=== PATIENT | female | born 1940 | race Caucasian/White ===

== ENCOUNTER 2018-01-31 13:28 | Observation (INO) | payer OTHER, BC ==
[2018-01-31 14:25] LABS: Absolute Lymphocytes (CBC) 1.6 K/uL (0.7-4.9); Absolute Monocytes 0.6 K/uL (0.1-1.3); Absolute Neutrophil 5.1 K/uL (1.8-8.0); Basophils % 1.2 % (0-1.3); Eosinophils % 3.2 % (0-4.4); Hematocrit 39.7 % (36.0-45.0); Lymphocytes % 20.5 % (15.3-44.8); MCH 28.8 pg (27.0-35.0); MCV 86.7 fL (80-100); MPV 8.5 fL (7.6-11.3); Monocytes % 7.5 % (3.3-12.3); RBC Red Blood Cell Count 4.58 M/uL (3.86-4.86)
--- NOTE | 2018-01-31 14:26 | RAD REPORT ---
EXAM DESCRIPTION: CT - Head Brain Wo Cont - 01/31/2018 2:20 pm CLINICAL HISTORY: Dizziness, hypertension COMPARISON: December 02 TECHNIQUE: Axial 5 mm thick images of the head were obtained without IV contrast. All CT scans are performed using dose optimization technique as appropriate and may include automated exposure control or mA/KV adjustment according to patient size. FINDINGS: No intracranial hemorrhage, mass, edema or shift of mid-line structures. No acute infarcti on changes seen. Patient has underlying atrophy and chronic ischemic pattern is present and not clear ly different from the comparison. Arterial and physiologic calcifications are present. Ventricles are in proportion to any volume loss. Mastoid air cells and visualized portions of the paranasal sinuses are clear. No acute bony findings. IMPRESSION: No hemorrhage, mass or acute intracranial finding. Atrophy and chronic ischemic change stable over the short interval since December 02.
[2018-01-31] MEDS ORDERED: MECLIZINE HCL 12.5 MG TAB ONE (14:29)
[2018-01-31 14:32] LABS: Protime INR 0.99
[2018-01-31 14:49] LABS: Urine Blood NEGATIVE (NEG); Urine Glucose NEGATIVE (NEG); Urine Protein NEGATIVE (NEG)
--- NOTE | 2018-01-31 14:58 | RAD REPORT ---
EXAM DESCRIPTION: RAD - Chest Single View - 01/31/2018 2:29 pm CLINICAL HISTORY: Syncope, weakness, shortness of breath COMPARISON: April 2016 TECHNIQUE: AP portable chest image was obtained 1425 hours . FINDINGS: Lung volumes are low. No peripheral mass, consolidation or failure. Interstitial markings are prominent but not clearly different. Heart and vasculature are normal. No measurable pleural effu marysol and no pneumothorax. No gross bony abnormality seen. No acute aortic findings suspected. IMPRESSION: No acute cardiopulmonary process. Chest findings are similar to comparison.
[2018-01-31 15:01] LABS: Albumin 4.2 g/dL (3.4-5.0); Bilirubin Direct 0.1 mg/dL (0-0.2); Bilirubin Total 0.5 mg/dL (0.2-1.0); CKMB Creatine Kinase MB 1.5 ng/mL (0.3-3.6); Magnesium 2.5 mg/dL (1.8-2.4); Potassium 3.4 mmol/L (3.5-5.1); Protein, Total 8.1 g/dL (6.4-8.2)
--- NOTE | 2018-01-31 17:11 | EKG ---
Test Date: 2018-01-31 Test Time: 14:32:09 [employer] Major: ELTON MEASUREMENT RESULTS: Intervals: Rate: 64 VA: 198 QRSD: 100 QT: 430 QTc: 443 [place]: P: 40 VA: 198 QRS: 23 T: 7 INTERPRETIVE STATEMENTS: Normal sinus rhythm Nonspecific T wave abnormality Abnormal ECG No previous ECG available for comparison Electronically Signed On 01-31-18 17:10:24 CDT by Leeroy Tolentino
--- NOTE | 2018-01-31 18:07 | ER ---
Nurse's Notes [facility] Name: Jaleesa Hernandez Age: 78 yrs Sex: Female : 1940 Arrival Date: 01/31/2018 Time: 13:31 Bed 7 Private MD: Tc Abbott Diagnosis: Near Syncope;Palpitations Presentation: 01/31 13:34 Presenting complaint: Patient states: I have been having dizzy spells at home and today la1 I checked my BP and it was in the 190s/100s. I am feeling dizzy and nauseous. Pt denies Headache. Transition of care: patient was not received from another setting of care. Onset of symptoms was January 31, 2018. Risk Assessment: Do you want to hurt yourself or someone else? Patient reports no desire to harm self or others. Initial Sepsis Screen: Does the patient meet any 2 criteria? No. Patient's initial sepsis screen is negative. Does the patient have a suspected source of infection? No. Patient's initial sepsis screen is negative. Care prior to arrival: None. 13:34 Method Of Arrival: Wheelchair la1 13:34 Acuity: LINUS 3 la1 Historical: - Allergies: 13:36 Sulfa (Sulfonamide Antibiotics); la1 - Home Meds: 13:38 labetalol 200 mg Oral tab 1 tab 2 times per day [Active]; Dexilant 60 mg oral CpDB 1 la1 cap once daily [Active]; hydrochlorothiazide 25 mg Oral tab 1 tab once daily [Active]; lorazepam 0.5 mg Oral tab 1 tab as needed [Active]; - PMHx: 13:36 Hypertension; GERD; bronchiectasis; la1 - Immunization history:: Adult Immunizations up to date. - Social history:: Smoking status: Patient/guardian denies using tobacco. - Ebola Screening: : No symptoms or risks identified at this time. Screenin:01 Abuse screen: Denies threats or abuse. Nutritional screening: No deficits noted. tw2 Tuberculosis screening: No symptoms or risk factors identified. Fall Risk None identified. Assessment: 14:00 General: Appears in no apparent distress. well groomed, Behavior is calm, cooperative, tw2 appropriate for age. Pain: Denies pain. Neuro: Level of Consciousness is awake, alert, obeys commands, Oriented to person, place, time, situation. Neuro: Reports dizziness. Cardiovascular: Denies chest pain, shortness of breath, Heart tones S1 S2 Capillary refill < 3 seconds Patient's skin is warm and dry. Respiratory: Airway is patent Respiratory effort is even, unlabored, Respiratory pattern is regular, symmetrical, Breath sounds are clear bilaterally. GI: No signs and/or symptoms were reported involving the gastrointestinal system. Abdomen is round non-distended, Bowel sounds present X 4 quads. : No signs and/or symptoms were reported regarding the genitourinary system. EENT: No signs and/or symptoms were reported regarding the EENT system. Derm: No signs and/or symptoms reported regarding the dermatologic system. Skin is intact, is healthy with good turgor, Skin temperature is warm. Musculoskeletal: Range of motion: intact in all extremities. 14:01 Reassessment: provider at bedside at this time. tw2 15:10 Reassessment: Patient appears in no apparent distress at this time. No changes from tw2 previously documented assessment. Patient and/or family updated on plan of care and expected duration. Pain level reassessed. Patient is alert, oriented x 3, equal unlabored respirations, skin warm/dry/pink. 16:00 Reassessment: Patient appears in no apparent distress at this time. No changes from tw2 previously documented assessment. Patient and/or family updated on plan of care and expected duration. Pain level reassessed. Patient is alert, oriented x 3, equal unlabored respirations, skin warm/dry/pink. Patient states feeling better. Patient states symptoms have improved. 16:56 Reassessment: Patient appears in no apparent distress at this time. No changes from tw2 previously documented assessment. Patient and/or family updated on plan of care and expected duration. Pain level reassessed. Patient is alert, oriented x 3, equal unlabored respirations, skin warm/dry/pink. Patient states feeling better. Patient states symptoms have improved. 18:01 Reassessment: pt in MRI at this time, unavailable for vs at this time. tw2 18:45 Reassessment: Patient appears in no apparent distress at this time. No changes from tw2 previously documented assessment. Patient and/or family updated on plan of care and expected duration. Pain level reassessed. Patient is alert, oriented x 3, equal unlabored respirations, skin warm/dry/pink. pt back from MRI at this time. 19:00 Reassessment: Patient appears in no apparent distress at this time. Patient and/or aa1 family updated on plan of care and expected duration. Pain level reassessed. Patient is alert, oriented x 3, equal unlabored respirations, skin warm/dry/pink. Awaiting admission to floor after shift change upstairs has been completed. 19:36 Reassessment: Patient appears in no apparent distress at this time. Patient is alert, aa1 oriented x 3, equal unlabored respirations, skin warm/dry/pink. Report given to Elissa on 2nd floor. Vital Signs: 13:36 BP 200 / 76; Pulse 64; Resp 16; Temp 98.2; Pulse Ox 100% on R/A; Weight 72.57 kg; la1 Height 5 ft. 3 in. (160.02 cm); 14:00 BP 177 / 81; Pulse 64; Resp 13; Pulse Ox 100% on R/A; tw2 15:10 BP 161 / 65; Pulse 63; Resp 17; Pulse Ox 98% on R/A; tw2 15:56 BP 151 / 62; Pulse 61; Resp 16; Pulse Ox 97% ; jl7 16:57 BP 125 / 89; Pulse 70; Resp 12; Pulse Ox 98% on R/A; tw2 18:45 BP 152 / 72; Pulse 77; Resp 22; Pulse Ox 96% on R/A; tw2 19:30 BP 157 / 61; Pulse 65; Resp 16; Pulse Ox 98% on R/A; Pain 0/10; aa1 13:36 Body Mass Index 28.34 (72.57 kg, 160.02 cm) la1 ED Course: 13:31 Patient arrived in ED. mr 13:32 Tc Abbott MD is Private Physician. mr 13:35 Triage completed. la1 13:36 Arm band placed on left wrist. la1 13:51 Eloisa Latif, RN is Primary Nurse. tw2 13:51 Placed in gown. Bed in low position. Call light in reach. Adult w/ patient. Cardiac tw2 monitor on. Pulse ox on. NIBP on. 14:00 Bunny Sutton PA is PHCP. [facility] 14:00 Michael Caal MD is Attending Physician. [facility] 14:11 Initial lab(s) drawn, by me, sent to lab. Urine collected: clean catch specimen, clear, jb1 césar colored. Inserted saline lock: 20 gauge in right antecubital area, using aseptic technique. Blood collected. 14:18 CT completed. Patient tolerated procedure well. Patient moved to CT via wheelchair. vr Patient moved back from CT. 14:19 CT Head Brain wo Cont In Process Unspecified. EDMS 14:27 X-ray completed. Portable x-ray completed in exam room. Patient tolerated procedure ml well. 14:29 XRAY Chest (1 view) In Process Unspecified. EDMS 14:38 EKG done, by measurement technician. reviewed by Bunny LAWRENCE. dt2 18:01 Patient moved to MRI via wheelchair. em2 18:05 Tc Abbott MD is Hospitalizing Provider. jmm 18:38 MRI completed. Patient tolerated well. Patient moved back from MRI. ka 19:05 Report given to ANDREI Rodriguez. tw2 19:06 Primary Nurse role handed off by Eloisa Latif, ANDREI tw2 19:30 No provider procedures requiring assistance completed. Patient admitted, IV remains in aa1 place. Administered Medications: 14:28 Drug: Meclizine 25 mg Route: PO; tw2 16:57 Follow up: Response: No adverse reaction; Marked relief of symptoms tw2 Outcome: 18:06 Decision to Hospitalize by Provider. [facility] 20:03 Admitted to Tele accompanied by tech, via wheelchair, room 404, with chart, Report aa1 called to [facility] 20:03 Condition: stable 20:03 Instructed on the need for admit, Demonstrated understanding of instructions. 20:04 Patient left the ED. aa1 Signatures: Dispatcher [employer] EDMS Rashard Enrique jb1 Tori Luo, RN RN aa1 Bunny Sutton PA PA jmm Marleny Sanchez mr Ruben, Lori ronny Ferris, Danica vr Santiago Wilder em2 Tamir Sellers, RN RN laAutumn Lopez Tara, ANDREI RN tw2 Maicol Roque RN RN jl7 Liz Franklin dt2
--- NOTE | 2018-01-31 18:07 | EDPHYS ---
Physician Documentation [facility] Name: Jaleesa Hernandez Age: 78 yrs Sex: Female : 1940 Arrival Date: 01/31/2018 Time: 13:31 Bed 7 Private MD: Tc Abbott ED Physician Michael Caal HPI: 01/31 14:08 This 78 yrs old Female presents to ER via Wheelchair with complaints of m Dizziness, Nausea, High Blood Pressure. 14:08 The patient presents with dizziness. Onset: The symptoms/episode began/occurred jm acutely, at 12:30. Context: occurred while the patient was walking. Modifying factors: The symptoms are alleviated by walking. Associated signs and symptoms: Pertinent negatives: chest pain. This is an 78 year old female with a history of HTN that presents to the ED with an acute episode of dizziness beginning today at approx 1230 pm today. patient states symptoms occurred abruptly while walking inside her home. Patient denies chest pain but states she has transient palpitations. Patient states her symptoms are currently mild. The patient states she nearly collapsed. Historical: - Allergies: 13:36 Sulfa (Sulfonamide Antibiotics); la1 - Home Meds: 13:38 labetalol 200 mg Oral tab 1 tab 2 times per day [Active]; Dexilant 60 mg oral CpDB 1 la1 cap once daily [Active]; hydrochlorothiazide 25 mg Oral tab 1 tab once daily [Active]; lorazepam 0.5 mg Oral tab 1 tab as needed [Active]; - PMHx: 13:36 Hypertension; GERD; bronchiectasis; la1 - Immunization history:: Adult Immunizations up to date. - Social history:: Smoking status: Patient/guardian denies using tobacco. - Ebola Screening: : No symptoms or risks identified at this time. ROS: 14:08 Constitutional: Negative for fever, chills, and weight loss. jmm 14:08 Respiratory: Negative for shortness of breath, cough, wheezing, and pleuritic chest pain, Abdomen/GI: Negative for abdominal pain, nausea, vomiting, diarrhea, and constipation, MS/Extremity: Negative for injury and deformity, Skin: Negative for injury, rash, and discoloration. 14:08 Cardiovascular: Positive for palpitations. 14:08 Neuro: Positive for dizziness, Negative for weakness. 14:08 All other systems are negative. Exam: 14:08 Constitutional: This is a well developed, well nourished patient who is awake, alert, jmm and in no acute distress. Head/Face: atraumatic. Chest/axilla: Normal chest wall appearance and motion. Cardiovascular: Regular rate and rhythm. No edema appreciated Respiratory: Normal respirations, no respiratory distress appreciated 14:08 Back: Normal ROM Skin: General appearance color normal MS/ Extremity: Moves all extremities, no obvious deformities appreciated, no edema noted to the lower extremities 14:08 Eyes: Extraocular movements: intact throughout, Nystagmus: is not appreciated. 14:08 Neuro: Orientation: is normal, Mentation: is normal, Memory: is normal, Cranial nerves: grossly normal, Cerebellar function: normal finger to nose testing, Motor: is normal, strength is 5/5 in all extremities, Sensation: is normal, Gait: is steady. 14:08 Psych: Behavior/mood is pleasant, cooperative. 18:01 ECG was reviewed by the Attending Physician. [facility] Vital Signs: 13:36 BP 200 / 76; Pulse 64; Resp 16; Temp 98.2; Pulse Ox 100% on R/A; Weight 72.57 kg; la1 Height 5 ft. 3 in. (160.02 cm); 14:00 BP 177 / 81; Pulse 64; Resp 13; Pulse Ox 100% on R/A; tw2 15:10 BP 161 / 65; Pulse 63; Resp 17; Pulse Ox 98% on R/A; tw2 15:56 BP 151 / 62; Pulse 61; Resp 16; Pulse Ox 97% ; jl7 16:57 BP 125 / 89; Pulse 70; Resp 12; Pulse Ox 98% on R/A; tw2 18:45 BP 152 / 72; Pulse 77; Resp 22; Pulse Ox 96% on R/A; tw2 19:30 BP 157 / 61; Pulse 65; Resp 16; Pulse Ox 98% on R/A; Pain 0/10; aa1 13:36 Body Mass Index 28.34 (72.57 kg, 160.02 cm) la1 MDM: 14:08 Patient medically screened. [facility] 18:00 Data reviewed: vital signs, nurses notes. [facility] 18:03 Counseling: I had a detailed discussion with the patient and/or guardian regarding: the [facility] historical points, exam findings, and any diagnostic results supporting the discharge/admit diagnosis, lab results, radiology results, the need for further work-up and treatment in the hospital. ED course: I discussed the patient with Dr. Abbott whom accepted admission. ED course: I discussed the patient with Dr. Zavala whom advised to order MRI for CVA rule out. . 01/31 14:09 Order name: Basic Metabolic Panel; Complete Time: 15:05 [facility] 01/31 14:09 Order name: CBC with Diff; Complete Time: 14:59 [facility] 01/31 14:09 Order name: Ckmb; Complete Time: 15:05 [facility] 01/31 14:09 Order name: CPK; Complete Time: 15:05 [facility] 01/31 14:09 Order name: LFT's; Complete Time: 15:05 [facility] 01/31 14:09 Order name: Magnesium; Complete Time: 15:05 [facility] 01/31 14:09 Order name: NT PRO-BNP; Complete Time: 15:05 [facility] 01/31 14:09 Order name: PT-INR; Complete Time: 14:59 [facility] 01/31 14:09 Order name: Ptt, Activated; Complete Time: 14:59 [facility] 01/31 14:09 Order name: Troponin (emerg Dept Use Only); Complete Time: 14:59 [facility] 01/31 14:13 Order name: Urine Dipstick--Ancillary (enter results); Complete Time: 14:59 ag 01/31 18:11 Order name: Basic Metabolic Panel [facility] 01/31 18:11 Order name: Basic Metabolic Panel [facility] 01/31 18:11 Order name: CBC with Automated Diff [facility] 01/31 14:00 Order name: EKG; Complete Time: 14:00 tw2 01/31 14:09 Order name: XRAY Chest (1 view); Complete Time: 14:59 [facility] 01/31 14:09 Order name: CT Head Brain wo Cont; Complete Time: 14:59 [facility] 01/31 17:54 Order name: MRA Head Wo Cont; Complete Time: 19:23 [facility] 01/31 17:56 Order name: Brain W/Wo Cont; Complete Time: 19:23 [facility] 01/31 17:58 Order name: MRA Neck W/Wo Cont; Complete Time: 19:23 [facility] 01/31 18:11 Order name: Regular EDMS 01/31 18:11 Order name: EKG Electrocardiogram [facility] 01/31 18:11 Order name: CBC with Automated Diff [facility] 01/31 18:11 Order name: Troponin I [facility] 01/31 18:11 Order name: Troponin I [facility] 01/31 18:11 Order name: Troponin I [facility] 01/31 14:00 Order name: EKG - Nurse/Tech; Complete Time: 14:11 [facility] 01/31 14:09 Order name: Cardiac monitoring; Complete Time: 14:11 [facility] 01/31 14:09 Order name: EKG - Nurse/Tech; Complete Time: 14:11 [facility] 01/31 14:09 Order name: IV Saline Lock; Complete Time: 14:11 [facility] 01/31 14:09 Order name: Labs collected and sent; Complete Time: 14:11 [facility] 01/31 14:09 Order name: O2 Per Protocol; Complete Time: 14:11 [facility] 01/31 14:09 Order name: O2 Sat Monitoring; Complete Time: 14:11 [facility] 01/31 14:09 Order name: Urine Dipstick-Ancillary (obtain specimen); Complete Time: 14:11 [facility] 01/31 18:11 Order name: EKG Electrocardiogram [facility] 01/31 18:11 Order name: EKG Electrocardiogram [facility] 01/31 18:11 Order name: EKG Electrocardiogram [facility] EC:01 Rate is 143 beats/min. Rhythm is regular. QRS [place] is Normal. [place] interval is normal. [facility] QRS interval is normal. QT interval is normal. T waves are Inverted in leads aVR, V1. No ST changes noted. Administered Medications: 14:28 Drug: Meclizine 25 mg Route: PO; tw2 16:57 Follow up: Response: No adverse reaction; Marked relief of symptoms tw2 Disposition: 02/01 15:53 Co-signature as Attending Physician, Michael Caal MD. Disposition: 01/31/18 18:06 Hospitalization ordered by Tc Abbott for Observation. Preliminary diagnosis are Near Syncope, Palpitations. - Bed requested for Telemetry/MedSurg (observation). - Status is Observation. aa1 - Condition is Stable. - Problem is new. - Symptoms are unchanged. UTI on Admission? No Signatures: Dispatcher [employer] [facility] Mariama Dee RN RN Andrew Buenoa, RN RN aa1 Bunny Sutton PA PA [facility] Tamir Sellers RN RN la1 Eloisa Latif RN RN tw2 Michael Caal MD MD gs Corrections: (The following items were deleted from the chart) 01/31 17:54 16:22 MR STROKE PROTOCOL+MRI.RAD.BRZ ordered. EDID EDMS 17:58 17:56 MRA Head Wo Cont ordered. EDID EDID 18:05 14:08 This is an 78 year old female with a history of HTN that presents to the ED with [facility] an acute episode of dizziness beginning today at approx 1230 pm today. patient states symptoms occurred abruptly while walking inside her home. Patient denies chest pain but states she has transient palpitations. Patient states her symptoms are currently mild. . [facility] 18:41 18:06 Hospitalization Ordered by Tc Abbott MD for Observation. Preliminary dw diagnosis is Near Syncope; Palpitations. Bed requested for Telemetry/MedSurg (observation). Status is Observation. Condition is Stable. Problem is new. Symptoms are unchanged. UTI on Admission? No. [facility] 20:04 18:41 01/31/2018 18:06 Hospitalization Ordered by Tc Abbott MD for Observation. aa1 Preliminary diagnosis is Near Syncope; Palpitations. Bed requested for Telemetry/MedSurg (observation). Status is Observation. Condition is Stable. Problem is new. Symptoms are unchanged. UTI on Admission? No. dw
[2018-01-31] MEDS ORDERED: ACETAMINOPHEN 500 MG TAB PO PRN (18:10)
[2018-01-31] MEDS ORDERED: ONDANSETRON 4 MG/2 ML VIAL IV PRN (18:10)
--- NOTE | 2018-01-31 18:58 | RAD REPORT ---
EXAM DESCRIPTION: MRI - MRA Head Wo Cont - 01/31/2018 6:39 pm CLINICAL HISTORY: CVA COMPARISON: None. TECHNIQUE: Axial and coronal 3D [id number] image acquisition was performed. 3D rotational images were generated with source and reconstruction images reviewed. FINDINGS: No aneurysm or vascular malformation. Distal internal carotid atherosclerotic changes are present without a high-grade stenosis. No basilar stenosis. Patient has significant atherosclerotic c hange in the peripheral branches of the middle cerebral arteries. IMPRESSION: Intracranial atherosclerotic changes are present in the middle cerebral artery branches. No large branch occlusion identifiable. No stenosis of the basilar or internal carotid arteries.
--- NOTE | 2018-01-31 19:09 | RAD REPORT ---
EXAM DESCRIPTION: MRI - MRA Neck W/Wo Cont - 01/31/2018 6:38 pm CLINICAL HISTORY: CVA COMPARISON: MRI head MRA head FINDINGS: MR angiography of the neck vasculature performed. Multiplanar MIP rotational imaging gener ated and reviewed. A 16 milliliter MultiHance contrast bones utilized. Aortic arch is 3 vessel. No origin stenosis. Left vertebral artery is dominant. No vertebral artery o r its in stenosis. No carotid stenosis or dissection. Basilar artery is normal. IMPRESSION: Negative MRA neck examination.
--- NOTE | 2018-01-31 19:11 | RAD REPORT ---
EXAM DESCRIPTION: MRI - Brain W/Wo Cont - 01/31/2018 6:38 pm CLINICAL HISTORY: CVA COMPARISON: CT head same date TECHNIQUE: Sagittal and axial T1-weighted images were obtained. Axial PD/heavily T2-weighted and T2- FLAIR images were obtained along with axial DWI/ADC mapping sequences. Coronal heavily T2 weighted s equence obtained. Axial and coronal post-contrast T1-weighted images were also obtained. A 16 ml Mag nevist contrast following utilized. FINDINGS: No intracranial hemorrhage, mass or acute infarction. There is no edema or shift of midli ne structures. No extra-axial fluid collections. [place]-matter/white matter junction is preserved. Sig nal voids are seen as a normal finding in the major intracranial vessels. Atrophy changes are mild. S cattered chronic ischemic change in the cerebral white matter. Post-contrast images show normal enhancement. No dural thickening. Mastoid air cells and paranasal sinuses are clear. IMPRESSION: No infarction or other acute intracranial finding. Mild atrophy and chronic ischemic change.
[2018-02-01 05:24] LABS: Absolute Monocytes 0.7 K/uL (0.1-1.3); Absolute Neutrophil 3.9 K/uL (1.8-8.0); Basophils % 1.1 % (0-1.3); Eosinophils % 4.2 % (0-4.4); Hematocrit 35.6 % (36.0-45.0); MCH 29.5 pg (27.0-35.0); MCV 86.3 fL (80-100); MPV 8.6 fL (7.6-11.3); Monocytes % 9.8 % (3.3-12.3); RBC Red Blood Cell Count 4.13 M/uL (3.86-4.86)
[2018-02-01 05:38] LABS: Potassium 3.4 mmol/L (3.5-5.1)
[2018-02-01] MEDS ORDERED: ASPIRIN EC 81 MG TAB PO SCH (09:00)
--- NOTE | 2018-02-01 19:06 | SS ---
Patient was admitted to the hospital on 01/31, had presented to the emergency room with a sudden onset of significant vertigo, which resulted in her feeling like she was going to fall. She also noticed a headache and an irregular heartbeats and took her blood pressure at home, was markedly elevated, an d she came to the emergency room. By this time, she has had most of her symptoms improved. She was given Antivert, which improved the rest of her symptoms. Her blood pressure soon stabilized to her b aseline and she has been asymptomatic since. Workup for TIA, stroke was essentially normal including MRIs and CT scans. The blood work was also good, felt well enough to be discharged with the additio n of Antivert to her regimen to follow up with me in 2 weeks. Probable diagnosis was vascular headac he, perhaps precipitated by sinus, resulting in vertigo and near-syncope. HR/MODL Voice ID: [id number] Report ID: [id number]
== END 2018-02-01 15:28 | disposition home or self-care (01) ==
LOC: ER 13:28 → ERHOLD 18:09 → 2ND 19:48
PROVIDERS: ADMIT Family Medicine; ATTEND Family Medicine
DX: R42 Dizziness and giddiness (principal); R55 Syncope and collapse; I10 Essential (primary) hypertension; K21.9 Gastro-esophageal reflux disease without esophagitis; Z88.2 Allergy status to sulfonamides
CPT/HCPCS: 36415; 70450; 70544; 70549; 70553; 71045; 80048 ×2; 80076; 81003; 82550; 82553; 83735; 83880; 84484 ×3; 85025 ×2; 85610; 85730; 93005; 99285; A9577; G0378 ×2

== ENCOUNTER 2020-03-05 01:43 | Emergency (ER) | payer OTHER, BC ==
[2020-03-05 02:18] LABS: Absolute Lymphocytes (CBC) 1.6 K/uL (0.7-4.9); Basophils % 0.9 % (0-1.3); Hematocrit 36.4 % (36.0-45.0); Lymphocytes % 18.6 % (15.3-44.8); MPV 8.8 fL (7.6-11.3); RBC Red Blood Cell Count 4.12 M/uL (3.86-4.86)
[2020-03-05] MEDS ORDERED: NA CHLORIDE 0.9% 100 ML IV ONE (02:18)
[2020-03-05] MEDS ORDERED: Nicardipine/NS 25 MG/250 ML KIT IV ONE (02:18)
[2020-03-05] MEDS ORDERED: LEVETIRACETAM 500 MG/5 ML VIAL IV ONE (02:18)
[2020-03-05 02:19] LABS: Protime INR 0.91
[2020-03-05 02:26] LABS: Potassium 3.8 mmol/L (3.5-5.1)
--- NOTE | 2020-03-05 03:10 | ER ---
Nurse's Notes [facility] [place] Name: Jaleesa Hernandez Age: 80 yrs Sex: Female : 1940 Arrival Date: 03/05/2020 Time: 01:42 Bed 3 Private MD: Diagnosis: Intracranial Hemorrhage Presentation: 03/05 01:43 Chief complaint: EMS states: pt is having word salad, inappropriate responses to sg questions. onset of changes in speech began at 0100 this morning. Coronavirus screen: Client denies travel out of the [place] in the last 14 days. At this time, the client does not indicate any symptoms associated with coronavirus-19. An acute neurological deficit is present. The patient has been moved to a treatment area. Initial Sepsis Screen: Does the patient meet any 2 criteria? No. Patient's initial sepsis screen is negative. Does the patient have a suspected source of infection? No. Patient's initial sepsis screen is negative. Risk Assessment: Do you want to hurt yourself or someone else? Patient reports no desire to harm self or others. Onset of symptoms was March 05, 2020 at 01:00. Transition of care: patient was not received from another setting of care. 01:43 Acuity: LINUS 2 sg 01:43 Method Of Arrival: EMS: [facility] sg 01:[address] at this time. sg 01:54 Care prior to arrival: Glucose check: 133. sg 02:17 Ebola Screen: No symptoms or risks identified at this time. The patients blood glucose mg2 was checked before arriving to the hospital and was found to be normal. Triage Assessment: 02:11 The onset of the patients symptoms was March 05, 2020 at 01:00. General: Appears in mg2 no apparent distress. comfortable, Behavior is calm, cooperative. 02:24 Neuro: Reports. rv Stroke Activation: Symptom onset < 3 hours Physician: Stroke Attending; Name: ; Notified At: ; Arrived At: Physician: Chief Stroke Resident; Name: ; Notified At: ; Arrived At: Physician: Stroke Resident; Name: ; Notified At: ; Arrived At: Physician: ED Attending; Name: ; Notified At: ; Arrived At: Physician: ED Resident; Name: ; Notified At: ; Arrived At: Historical: - Allergies: 01:47 Sulfa (Sulfonamide Antibiotics); sg - PMHx: 01:47 bronchiectasis; GERD; Hypertension; sg - PSHx: 01:43 Hysterectomy; sg - Immunization history:: Adult Immunizations unknown. - Social history:: Smoking status: unknown. Screenin:08 Abuse screen: Denies threats or abuse. Denies injuries from another. Nutritional mg2 screening: No deficits noted. Tuberculosis screening: No symptoms or risk factors identified. Patient has been NPO before screening. The patient is alert, able to follow commands. The patient does not exhibit slurred or garbled speech The patient is not exhibiting difficulty speaking. The patient does not exhibit difficulty understanding words. The patient is able to swallow own secretions with no drooling or need for suction. Patient tolerated one teaspoon of water. No drooling, immediate coughing, gurgling, or clearing of the throat was noted. The patient tolerated 90mL of water. No drooling, immediate coughing, gurgling, or clearing of the throat was noted. The patient passed the bedside swallow screening. Oral medications may be given as ordered. Contact Physician for further diet orders. Provider notified of bedside swallow screening results: Nain Martínez MD. Fall Risk Secondary diagnosis (15 points) condusion. IV access (20 points). Assessment: 01:57 Reassessment: pt returned from CT with Nba FORBES at bedside. sg 01:59 VAN Scoring: Arm Drift: Patients demonstrates NO arm weakness. Patient is VAN Negative. mg2 Patient has been NPO before screening. The patient is alert, and able to follow commands. The patient does not exhibit slurred or garbled speech. The patient is not exhibiting difficulty speaking. The patient does not exhibit difficulty understanding words. The patient is able to swallow own secretions with no drooling or need for suction. Patient tolerated one teaspoon of water. No drooling, immediate coughing, gurgling, or clearing of the throat was noted. The patient tolerated 90mL of water. No drooling, immediate coughing, gurgling, or clearing of the throat was noted. 02:03 Reassessment: pt niece DARONShameka, states that she states she started having dizziness and sg headache with high blood pressure and not feeling normal at around 2150 last night, then around 0100 her speech was different per the niece. 02:06 General: Appears in no apparent distress. comfortable, Behavior is calm, cooperative. mg2 Pain: Denies pain. Neuro: Level of Consciousness is awake, confused, Oriented to person. Cardiovascular: Capillary refill < 3 seconds Patient's skin is warm and dry. Respiratory: Airway is patent Respiratory effort is even, unlabored, Respiratory pattern is regular, symmetrical. GI: No signs and/or symptoms were reported involving the gastrointestinal system. : No signs and/or symptoms were reported regarding the genitourinary system. EENT: No signs and/or symptoms were reported regarding the EENT system. Derm: Skin is intact, is healthy with good turgor, Skin is pink, warm \T\ dry. normal. Musculoskeletal: Circulation, motion, and sensation intact. Capillary refill < 3 seconds. 02:10 The patient passed the bedside swallow screening. Oral medications may be given as mg2 ordered. Contact Physician for further diet orders. Provider notified of bedside swallow screening results: Nain Martínez MD. 02:23 T-PA (Activase) Screening: Contraindications: Intracranial hemorrhage and its risk rv factor and suspicion of subarachnoid bleed: Yes. 02:25 Reassessment: Desk area secretary on phone with [facility] center at this time to initiate a sg transfer per order for intracranial hemorrhage. 02:50 Reassessment: pt and pt family updated on status of transfer, verbal ok received to try sg transfer to different facility while awaiting a call back at this time. 02:51 Reassessment: no call back from [facility] transfer center at this time, sg requesting attempt to transfer to a different facility at this time, [facility] [place] [facility] [place]. 02:59 Reassessment: speaking the Neuro from [facility] at this time. 03:00 Reassessment: updating pt Ht and Wt, pt reports weighing 55 or 45, pt is confused. pt sg niece reports last weight of 135 lbs. 03:12 Reassessment: MAYDA with flight transfer center reports awaiting a bed assignment from [facility] in the medical center at this time prior to launching an aircraft, awaiting a call back at this time. 03:30 Reassessment: Danielle with [employer] reports a helicopter has been dispatched, request sg face sheet and MOT be sent to [phone]. 03:31 Reassessment: report given to ANDREI Rosales of [facility] ICU. [facility] is on the mg2 way. 03:55 Reassessment: [facility] at bedside for pt report and transport to receiving facility, pt lorena remains at bedside at this time. 04:00 Reassessment: report given to [facility] Flight staff. patient in good mg2 condition, IV Intact with niCardipine ongoing. Vital Signs: 02:04 BP 190 / 68; Pulse 68; Resp 16 S; Temp 97.2; Pulse Ox 100% on R/A; sg 02:18 BP 145 / 45; Pulse 69; Resp 18; Pulse Ox 100% on R/A; mg2 02:23 BP 153 / 56; Pulse 69; Resp 18; Pulse Ox 98% on R/A; mg2 02:36 BP 118 / 46; Pulse 69; Resp 18; Pulse Ox 98% on R/A; mg2 02:54 BP 123 / 47; Pulse 70; Resp 18; Pulse Ox 96% on R/A; mg2 02:55 Weight 61.23 kg (R); Height 5 ft. 5 in. (165.10 cm); sg 03:20 BP 135 / 58; Pulse 71; Resp 18; Pulse Ox 98% on R/A; Pain 0/10; mg2 03:54 BP 133 / 54; Pulse 74; Resp 21; Temp 97.6; Pulse Ox 98% on R/A; rv 02:55 Body Mass Index 22.46 (61.23 kg, 165.10 cm) sg NIH Stroke Scale Scores: 02:20 NIHSS Score: 3 rv 02:23 NIHSS Score: 3 rv 03:56 NIHSS Score: 3 rv ED Course: 01:42 Patient arrived in ED. sg 01:45 Triage completed. sg 01:45 Nain Martínez MD is Attending Physician. mh7 01:45 Arm band placed on. sg 01:46 Carlito Lares, ANDREI is Primary Nurse. mg2 02:00 Initial lab(s) drawn, by ED staff, sent to lab. sg 02:02 CT Stroke Brain w/o Contrast In Process Unspecified. EDMS 02:09 No provider procedures requiring assistance completed. Maintain EMS IV. Dressing mg2 intact. Good blood return noted. Site clean \T\ dry. Gauge \T\ site: 18 \T\LAC. 02:10 Patient has correct armband on for positive identification. potline monitor on. Pulse mg2 ox on. NIBP on. 02:21 Initiated transfer at [facility] with Silke Calderón. She stated she would do a bed tt3 check and call back. 02:27 Stroke CXR 1 View In Process Unspecified. EDMS 02:57 Silke Calderón called back with Dr. Crocker to speak with Dr. Martínez regarding the pts case. tt3 03:20 Inserted saline lock: 20 gauge in right antecubital area, using aseptic technique. mg2 Patient transferred, IV remains in place. 03:20 COVID SWAB SENT TO LAB. mg2 Administered Medications: 02:05 Drug: Keppra 1000 mg Route: IV; Rate: calculated rate; Site: left antecubital; sg 02:24 Follow up: Response: No adverse reaction; IV Status: Completed infusion sg 02:13 Drug: niCARdipine (25mg/250ml) 5 mg/hr Route: IV; Rate: calculated rate; Site: left sg antecubital; 02:17 Follow up: Rate change 2.5 mg/hr sg 02:25 Follow up: Rate change 5 mcg/min rv 02:36 Follow up: Rate change 2.5 mg/hr mg2 03:56 Follow up: IV Status: Infusion continued upon transfer rv Point of Care Testing: Blood Glucose: 02:04 Blood Glucose: 125 mg/dL; sg Ranges: Outcome: 03:09 ER care complete, transfer ordered by MD. dorsey 03:55 Transferred by helicopter to [facility], Transfer form completed. X-rays rv sent w/ patient. 03:55 Condition: stable 03:55 Instructed on the need for transfer. 04:05 ER care complete, transfer ordered by MD. dorsey 04:05 Patient left the ED. rv NIH Stroke Scale - NIH Stroke Score Date: 03/05/2020 Time: 02:20 Total Score = 3 1a. Level of Consciousness (LOC) - 0(Alert) 1b. Level of Consciousness (LOC) (Year \T\ Age) - 1(One) 1c. LOC Commands (Open \T\ Closes Eyes/Care Specialist) - 0(Both) 2. Best Gaze (Lateral Gaze Paresis) - 0(Normal) 3. Visual Field Loss - 0(No visual loss) 4. Facial Palsy - 0(Normal) 5a. Left Arm: Motor (10-second hold) - 0(No drift) 5b. Right Arm: Motor (10-second hold) - 0(No drift) 6a. Left Leg: Motor (5-second hold - always test supine) - 0(No drift) 6b. Right Leg: Motor (5-second hold - always test supine) - 0(No drift) 7. Limb Ataxia (finger/nose \T\ heel/chavira - test with eyes open) - 0(Absent) 8. Sensory Loss (pinprick arms/legs/face) - 0(Normal) 9. Best Language: Aphasia (description/naming/reading) - 2(Severe aphasia) 10. Dysarthria (speech clarity - read or repeat words) - 0(Normal) 11. Extinction and Inattention (visual/tactile/auditory/spatial/personal) - 0(No abnormality) Initials: NIH Stroke Scale - NIH Stroke Score Date: 03/05/2020 Time: 02:23 Total Score = 3 1a. Level of Consciousness (LOC) - 0(Alert) 1b. Level of Consciousness (LOC) (Year \T\ Age) - 1(One) 1c. LOC Commands (Open \T\ Closes Eyes/Care Specialist) - 0(Both) 2. Best Gaze (Lateral Gaze Paresis) - 0(Normal) 3. Visual Field Loss - 0(No visual loss) 4. Facial Palsy - 0(Normal) 5a. Left Arm: Motor (10-second hold) - 0(No drift) 5b. Right Arm: Motor (10-second hold) - 0(No drift) 6a. Left Leg: Motor (5-second hold - always test supine) - 0(No drift) 6b. Right Leg: Motor (5-second hold - always test supine) - 0(No drift) 7. Limb Ataxia (finger/nose \T\ heel/chavira - test with eyes open) - 0(Absent) 8. Sensory Loss (pinprick arms/legs/face) - 0(Normal) 9. Best Language: Aphasia (description/naming/reading) - 2(Severe aphasia) 10. Dysarthria (speech clarity - read or repeat words) - 0(Normal) 11. Extinction and Inattention (visual/tactile/auditory/spatial/personal) - 0(No abnormality) Initials: NIH Stroke Scale - NIH Stroke Score Date: 03/05/2020 Time: 03:56 Total Score = 3 1a. Level of Consciousness (LOC) - 0(Alert) 1b. Level of Consciousness (LOC) (Year \T\ Age) - 1(One) 1c. LOC Commands (Open \T\ Closes Eyes/Care Specialist) - 0(Both) 2. Best Gaze (Lateral Gaze Paresis) - 0(Normal) 3. Visual Field Loss - 0(No visual loss) 4. Facial Palsy - 0(Normal) 5a. Left Arm: Motor (10-second hold) - 0(No drift) 5b. Right Arm: Motor (10-second hold) - 0(No drift) 6a. Left Leg: Motor (5-second hold - always test supine) - 0(No drift) 6b. Right Leg: Motor (5-second hold - always test supine) - 0(No drift) 7. Limb Ataxia (finger/nose \T\ heel/chavira - test with eyes open) - 0(Absent) 8. Sensory Loss (pinprick arms/legs/face) - 0(Normal) 9. Best Language: Aphasia (description/naming/reading) - 2(Severe aphasia) 10. Dysarthria (speech clarity - read or repeat words) - 0(Normal) 11. Extinction and Inattention (visual/tactile/auditory/spatial/personal) - 0(No abnormality) Initials: rv Signatures: Dispatcher [employer] Rahul Magana RN RN sg Gardose, Michele, RN RN [facility] Carter Springer RN RN rv Holmes, Maurice, MD MD [id number] [email or web address]
--- NOTE | 2020-03-05 03:10 | EDPHYS ---
Physician Documentation [facility] Name: Jaleesa Hernandez Age: 80 yrs Sex: Female : 1940 Arrival Date: 03/05/2020 Time: 01:42 Bed 3 Private MD: ED Physician Nain Martínez HPI: 03/05 02:02 This 80 yrs old Female presents to ER via EMS with complaints of S/S of mh7 Possible Stroke. 02:02 The patient's problem is reported as dysphasia, incoherent speech. Onset: The mh7 symptoms/episode began/occurred at an unknown time. Duration: The episode is continuous. Context: the episode(s) was witnessed, by no one, symptoms became apparent at an unknown time, occurred at home, occurred while the patient was unknown. Possible contributing factors include: none. The symptoms are alleviated by nothing. The symptoms are aggravated by nothing. Associated signs and symptoms: Pertinent positives: confusion, dizziness. Severity of symptoms: At their worst the symptoms were moderate today, in the emergency department the symptoms are unchanged. Patient's baseline: Neuro: alert and fully oriented, Motor: no deficits, Ambulation: walks without assistance, Speech: normal. Historical: - Allergies: 01:47 Sulfa (Sulfonamide Antibiotics); sg - PMHx: 01:47 bronchiectasis; GERD; Hypertension; sg - PSHx: 01:43 Hysterectomy; sg - Immunization history:: Adult Immunizations unknown. - Social history:: Smoking status: unknown. ROS: 02:02 Unable to obtain ROS due to mh7 02:34 Constitutional: Negative for fever, chills, and weight loss, Eyes: Negative for injury, mh7 pain, redness, and discharge, ENT: Negative for injury, pain, and discharge, Neck: Negative for injury, pain, and swelling, Respiratory: Negative for shortness of breath, cough, wheezing, and pleuritic chest pain, Abdomen/GI: Negative for abdominal pain, nausea, vomiting, diarrhea, and constipation, : Negative for injury, bleeding, discharge, and swelling, MS/Extremity: Negative for injury and deformity. 02:34 Unable to obtain ROS due to Answers some questions coherently but confabulation with others. Exam: 02:34 Head/Face: Normocephalic, atraumatic. Eyes: Pupils equal round and reactive to light, mh7 extra-ocular motions intact. Lids and lashes normal. Conjunctiva and sclera are non-icteric and not injected. Cornea within normal limits. Periorbital areas with no swelling, redness, or edema. ENT: Nares patent. No nasal discharge, no septal abnormalities noted. Tympanic membranes are normal and external auditory canals are clear. Oropharynx with no redness, swelling, or masses, exudates, or evidence of obstruction, uvula midline. Mucous membranes moist. Neck: Trachea midline, no thyromegaly or masses palpated, and no cervical lymphadenopathy. Supple, full range of motion without nuchal rigidity, or vertebral point tenderness. No Meningismus. Chest/axilla: Normal chest wall appearance and motion. Nontender with no deformity. No lesions are appreciated. Cardiovascular: Regular rate and rhythm with a normal S1 and S2. No gallops, murmurs, or rubs. Normal PMI, no JVD. No pulse deficits. Respiratory: Lungs have equal breath sounds bilaterally, clear to auscultation and percussion. No rales, rhonchi or wheezes noted. No increased work of breathing, no retractions or nasal flaring. Abdomen/GI: Soft, non-tender, with normal bowel sounds. No distension or tympany. No guarding or rebound. No evidence of tenderness throughout. Back: No spinal tenderness. No costovertebral tenderness. Full range of motion. Skin: Warm, dry with normal turgor. Normal color with no rashes, no lesions, and no evidence of cellulitis. MS/ Extremity: Pulses equal, no cyanosis. Neurovascular intact. Full, normal range of motion. 02:34 Constitutional: The patient appears in no acute distress, alert, awake. 02:34 Neuro: Orientation: to person, Mentation: confused, Memory: immediate memory is impaired, Cranial nerves: grossly normal, Cerebellar function: is grossly normal, Motor: is normal, Sensation: is normal, Gait: not tested. seizure activity, is not displayed by the patient, Abnormal movements: there are no abnormal movements. 03:27 Radiologist reports: Left temporal lobe areas of parenchymal hemorrhage with mild mass mh7 effect and midline shift 03:27 ECG was reviewed by the Attending Physician. Vital Signs: 02:04 BP 190 / 68; Pulse 68; Resp 16 S; Temp 97.2; Pulse Ox 100% on R/A; sg 02:18 BP 145 / 45; Pulse 69; Resp 18; Pulse Ox 100% on R/A; mg2 02:23 BP 153 / 56; Pulse 69; Resp 18; Pulse Ox 98% on R/A; mg2 02:36 BP 118 / 46; Pulse 69; Resp 18; Pulse Ox 98% on R/A; mg2 02:54 BP 123 / 47; Pulse 70; Resp 18; Pulse Ox 96% on R/A; mg2 02:55 Weight 61.23 kg (R); Height 5 ft. 5 in. (165.10 cm); sg 03:20 BP 135 / 58; Pulse 71; Resp 18; Pulse Ox 98% on R/A; Pain 0/10; mg2 03:54 BP 133 / 54; Pulse 74; Resp 21; Temp 97.6; Pulse Ox 98% on R/A; rv 02:55 Body Mass Index 22.46 (61.23 kg, 165.10 cm) sg NIH Stroke Scale Scores: 02:20 NIHSS Score: 3 rv 02:23 NIHSS Score: 3 rv 03:56 NIHSS Score: 3 rv MDM: 02:00 Patient medically screened. mh7 03:05 Differential diagnosis: CVA, TIA, Dementia, Alzheimer disease, metabolic disorder, drug mh7 effects. Differential diagnosis:. Data reviewed: vital signs, nurses notes, EMS record, old medical records, lab test result(s), cardiac enzymes, CBC, electrolytes, urinalysis, EKG, radiologic studies, CT scan, plain films. Data interpreted: Pulse oximetry: on room air is 96 %. Interpretation: normal. Counseling: I had a detailed discussion with the patient and/or guardian regarding: the historical points, exam findings, and any diagnostic results supporting the discharge/admit diagnosis, the presence of at least one elevated blood pressure reading (>120/80) during this emergency department visit, lab results, radiology results, the need to transfer to another facility, for higher level of care, [facility] does not immediately have the required specialist. Response to treatment: the patient's symptoms have mildly improved after treatment. 03/05 02:01 Order name: Basic Metabolic Panel; Complete Time: 02:33 mh7 03/05 02:01 Order name: CBC with Diff; Complete Time: 02:33 mh7 03/05 02:01 Order name: Protime (+inr); Complete Time: 02:33 [facility] 03/05 02:01 Order name: Ptt, Activated; Complete Time: 02:33 [facility] 03/05 02:11 Order name: Glucose, Ancillary Testing; Complete Time: 02:33 [facility] 03/05 02:34 Order name: Troponin (emerg Dept Use Only); Complete Time: 03:27 [facility] 03/05 01:43 Order name: CT Stroke Brain w/o Contrast 03/05 02:01 Order name: Stroke CXR 1 View [facility] 03/05 02:01 Order name: EKG; Complete Time: 02:02 [facility] 03/05 03:18 Order name: SARS-COV-2 RT PCR [facility] 03/05 03:48 Order name: Urine Dipstick--Ancillary (enter results) [facility] 03/05 02:01 Order name: Accucheck; Complete Time: 02:05 [facility] 03/05 02:01 Order name: Cardiac monitoring; Complete Time: 02:05 [facility] 03/05 02:01 Order name: EKG - Nurse/Tech; Complete Time: 02:05 [facility] 03/05 02:01 Order name: IV Saline Lock; Complete Time: 02:05 [facility] 03/05 02:01 Order name: Labs collected and sent; Complete Time: 02:05 [facility] 03/05 02:01 Order name: NPO; Complete Time: 02:05 [facility] 03/05 02:01 Order name: O2 Per Protocol; Complete Time: 02:05 [facility] 03/05 02:01 Order name: O2 Sat Monitoring; Complete Time: 02:06 [facility] 03/05 02:01 Order name: Stroke Swallow Screen; Complete Time: 02:06 [facility] EC:27 Rate is 66 beats/min. Rhythm is regular, Normal Sinus Rhythm. QRS Port Reading is Normal. MO mh7 interval is normal. QRS interval is normal. QT interval is normal. No Q waves. T waves are Normal. No ST changes noted. Clinical impression: NSR w/ Non-specific ST/T Changes. Administered Medications: 02:05 Drug: Keppra 1000 mg Route: IV; Rate: calculated rate; Site: left antecubital; sg 02:24 Follow up: Response: No adverse reaction; IV Status: Completed infusion sg 02:13 Drug: niCARdipine (25mg/250ml) 5 mg/hr Route: IV; Rate: calculated rate; Site: left sg antecubital; 02:17 Follow up: Rate change 2.5 mg/hr sg 02:25 Follow up: Rate change 5 mcg/min rv 02:36 Follow up: Rate change 2.5 mg/hr mg2 03:56 Follow up: IV Status: Infusion continued upon transfer rv Point of Care Testing: Blood Glucose: 02:04 Blood Glucose: 125 mg/dL; sg Ranges: Critical Glucose Levels:Adult <50 mg/dl or >400 mg/dl <40 mg/dl or >180 mg/dl Disposition: 03/05/20 04:05 Transfer ordered to [facility]. Diagnosis is Intracranial Hemorrhage. - Reason for transfer: Higher level of care. - Accepting physician is Dr. Crocker. - Condition is Critical. - Problem is new. - Symptoms have improved. NIH Stroke Scale - NIH Stroke Score Date: 03/05/2020 Time: 02:20 Total Score = 3 1a. Level of Consciousness (LOC) - 0(Alert) 1b. Level of Consciousness (LOC) (Year \T\ Age) - 1(One) 1c. LOC Commands (Open \T\ Closes Eyes/[facility]) - 0(Both) 2. Best Gaze (Lateral Gaze Paresis) - 0(Normal) 3. Visual Field Loss - 0(No visual loss) 4. Facial Palsy - 0(Normal) 5a. Left Arm: Motor (10-second hold) - 0(No drift) 5b. Right Arm: Motor (10-second hold) - 0(No drift) 6a. Left Leg: Motor (5-second hold - always test supine) - 0(No drift) 6b. Right Leg: Motor (5-second hold - always test supine) - 0(No drift) 7. Limb Ataxia (finger/nose \T\ heel/chavira - test with eyes open) - 0(Absent) 8. Sensory Loss (pinprick arms/legs/face) - 0(Normal) 9. Best Language: Aphasia (description/naming/reading) - 2(Severe aphasia) 10. Dysarthria (speech clarity - read or repeat words) - 0(Normal) 11. Extinction and Inattention (visual/tactile/auditory/spatial/personal) - 0(No abnormality) Initials: rv NIH Stroke Scale - NIH Stroke Score Date: 03/05/2020 Time: 02:23 Total Score = 3 1a. Level of Consciousness (LOC) - 0(Alert) 1b. Level of Consciousness (LOC) (Year \T\ Age) - 1(One) 1c. LOC Commands (Open \T\ Closes Eyes/[facility] Cl[facility]) - 0(Both) 2. Best Gaze (Lateral Gaze Paresis) - 0(Normal) 3. Visual Field Loss - 0(No visual loss) 4. Facial Palsy - 0(Normal) 5a. Left Arm: Motor (10-second hold) - 0(No drift) 5b. Right Arm: Motor (10-second hold) - 0(No drift) 6a. Left Leg: Motor (5-second hold - always test supine) - 0(No drift) 6b. Right Leg: Motor (5-second hold - always test supine) - 0(No drift) 7. Limb Ataxia (finger/nose \T\ heel/chavira - test with eyes open) - 0(Absent) 8. Sensory Loss (pinprick arms/legs/face) - 0(Normal) 9. Best Language: Aphasia (description/naming/reading) - 2(Severe aphasia) 10. Dysarthria (speech clarity - read or repeat words) - 0(Normal) 11. Extinction and Inattention (visual/tactile/auditory/spatial/personal) - 0(No abnormality) Initials: NIH Stroke Scale - NIH Stroke Score Date: 03/05/2020 Time: 03:56 Total Score = 3 1a. Level of Consciousness (LOC) - 0(Alert) 1b. Level of Consciousness (LOC) (Year \T\ Age) - 1(One) 1c. LOC Commands (Open \T\ Closes Eyes/[facility] Cl[facility]) - 0(Both) 2. Best Gaze (Lateral Gaze Paresis) - 0(Normal) 3. Visual Field Loss - 0(No visual loss) 4. Facial Palsy - 0(Normal) 5a. Left Arm: Motor (10-second hold) - 0(No drift) 5b. Right Arm: Motor (10-second hold) - 0(No drift) 6a. Left Leg: Motor (5-second hold - always test supine) - 0(No drift) 6b. Right Leg: Motor (5-second hold - always test supine) - 0(No drift) 7. Limb Ataxia (finger/nose \T\ heel/chavira - test with eyes open) - 0(Absent) 8. Sensory Loss (pinprick arms/legs/face) - 0(Normal) 9. Best Language: Aphasia (description/naming/reading) - 2(Severe aphasia) 10. Dysarthria (speech clarity - read or repeat words) - 0(Normal) 11. Extinction and Inattention (visual/tactile/auditory/spatial/personal) - 0(No abnormality) Initials: Signatures: Dispatcher [employer] EDND Rahul Scott, RN RN Carter Springer RN RN Nain Martínez MD MD [facility] Carlito Lares RN [facility] Corrections: (The following items were deleted from the chart) 03:18 03:03 CORONAVIRUS+ ordered. [facility] 04:01 03:09 03/05/2020 03:09 Transfer ordered to [facility]. Diagnosis is Intracranial Hemorrhage. Reason for transfer: Higher level of care. Accepting physician is Dr. Crocker. Condition is Critical. Problem is new. Symptoms have improved. [facility] 04:05 04:05 03/05/2020 04:05 Transfer ordered to [facility]. Diagnosis is Intracranial Hemorrhage. Reason for transfer: Higher level of care. Accepting physician is Dr. Crocker. Condition is Critical. Problem is new. Symptoms have improved. 7
[2020-03-05 04:11] LABS: Urine Blood NEGATIVE (NEG); Urine Glucose NEGATIVE (NEG); Urine Protein NEGATIVE (NEG); Urine pH 7.5 (5.0-7.0)
[2020-03-05 04:51] VITALS: O2SAT 98
[2020-03-05 04:52] VITALS: BP 133/54; TEMP 97.6
--- NOTE | 2020-03-05 08:27 | RAD REPORT ---
EXAM DESCRIPTION: Kylah Single View03/05/2020 2:27 am CLINICAL HISTORY: Confusion/dysarthria COMPARISON: 2017 FINDINGS: The lungs appear clear of acute infiltrate. The heart is normal size IMPRESSION: No acute abnormalities displayed
--- NOTE | 2020-03-05 11:38 | RAD REPORT ---
EXAM DESCRIPTION: CT - Ct Stroke Brain Wo Cont - 03/05/2020 6:20 am ADDENDUM #1 Critical findings were discussed with and acknowledged by Dr. Nain Martínez on 03/05/2020 2:10 AM CDT . Electronically signed by: Keyur Lewis MD 03/05/2020 7:02 AM CDT End of Addendum CLINICAL HISTORY: Aphasia;Confused COMPARISON: None. TECHNIQUE: CT HEAD WITHOUT IV CONTRAST on 03/05/2020 1:43 AM CDT This exam was performed according to our departmental dose-optimization program, which includes autom ated exposure control, adjustment of the mA and/or kV according to patient size and/or use of iterati ve reconstruction technique. FINDINGS: There is a large hemorrhage in the posterior left temporal lobe measuring 4.1 x 4.0 cm. Se cond adjacent focus of hemorrhage measures 1.6 cm. There is surrounding vasogenic edema. There is mil d mass effect with [id number] midline shift of 5 mm. Lunsford-white differentiation is preserved. Ther e is no hydrocephalus. There is no significant volume loss for age. The calvarium is intact. Orbits and globes are unremarkable. The paranasal sinuses are clear. Mastoid air cells are clear. IMPRESSION: Left temporal lobe areas of parenchymal hemorrhage with mild mass effect and midline connor ft Electronically signed by: Keyur Lewis MD 03/05/2020 2:08 AM CDT Due to temporary technical issues with the PACS/Fluency reporting system, reports are being signed by the in house radiologist without review as a courtesy to ensure prompt reporting. The interpreting r adiologist is fully responsible for the content of the report.
== END 2020-03-05 04:05 | disposition short-term general hospital (02) ==
LOC: ER 01:43
DX: I62.9 Nontraumatic intracranial hemorrhage, unspecified (principal); Z20.828 Contact with and (suspected) exposure to other viral communicable diseases; I10 Essential (primary) hypertension; R29.703 NIHSS score 3; Z88.2 Allergy status to sulfonamides
CPT/HCPCS: 96365; 93005; 85025; 80048; 36415; 85610; 82947; 85730; 81003; 84484; 70450; 71045; 99285; U0003; J1953

== ENCOUNTER 2024-07-30 19:38 | Emergency (ER) | payer OTHER, BC ==
[2024-07-30] MEDS ORDERED: LIDOCAINE 2% W/EPI 1:200,000 MPF 20 ML VIAL IM ONE (19:57)
[2024-07-30] MEDS ORDERED: dilTIAZem HCL 25 MG/5 ML VIAL IV ONE (19:58)
[2024-07-30] MEDS ORDERED: Nicardipine/NS 0 MG/0 ML KIT IV ONE (20:01)
--- NOTE | 2024-07-30 20:34 | RAD REPORT ---
EXAM: CT Ct Stroke Brain Wo Cont HISTORY: STROKE ALERT COMPARISON: 03/05/2020 TECHNIQUE: Multiple contiguous axial images were obtained for a CT of the brain without contrast. Sag ittal and coronal reformats were performed. One or more of the following dose reduction techniques were used: Automated exposure control, adjus tment of the mA and kV according to patient size, and iterative reconstruction. Unless otherwise specified, incidental findings do not require dedicated imaging follow-up. FINDINGS: Large hyperdense intraparenchymal hematoma centered on the right posterior cingulate gyrus cortex, wi th some extension along the right forceps major, measuring 4.9 x 2.4 x 2.3 cm in greatest AP, transverse, and CC dimensions. Mass effect upon the adjacent parasagittal frontoparietal sulci and th e body of the right lateral ventricle. Less than 2 mm rightward midline shift. Scattered relatively small volume subarachnoid hemorrhage most notably along the bilateral parietal s ulci. Right parafalcine hyperdense subdural hematoma measuring up to 3 mm in thickness extending anteriorly to posteriorly. No evidence of hydrocephalus, or transtentorial herniation. Encephalomalacia involving the left later al temporal lobe, with some extension along the adjacent parietal lobe, with corresponding left temporal horn ex vacuo dilation, in the region of previously visualized parenchymal hematoma. Mild ba ckground diffuse parenchymal atrophy. Confluent periventricular and deep white matter hypodensities, nonspecific but suggestive of chronic small vessel ischemic changes. The calvarium is intact. The visualized paranasal sinuses and mastoid air cells are essentially clear . IMPRESSION: Multicompartment hemorrhage, with the dominant finding being a right intraparenchymal hematoma center ed on the posterior right cingulate gyrus, as described above. Moderate mass effect predominantly along the body of the right lateral ventricle. Minimal rightward midline shift. Given the location of the findings, underlying chronic amyloid angiopathy should be considered. Other chronic findings as above. THIS REPORT CONTAINS FINDINGS THAT MAY BE CRITICAL TO PATIENT CARE. The findings were verbally commun icated via telephone to Roderick Guerra on 07/30/2024 7:51 PM.
--- NOTE | 2024-07-30 20:56 | EDPHYS ---
Physician Documentation [facility] Name: Jaleesa Hernandez Age: 84 yrs Sex: Female : 1940 Arrival Date: 07/30/2024 Time: 19:38 Bed 4 Private MD: ED Physician Roderick Eduardo HPI: 07/30 20:36 This 84 yrs old Female presents to ER via EMS with complaints of S/S of Possible rt Stroke, Fall Injury. 20:36 Patient presents to the ED with fall. Is unclear if the patient had a left-sided rt weakness before the fall or after the fall. Presented as a stroke alert. This occurred about 45 minutes prior to arrival. Patient did hit her head sustaining a laceration. Denies other acute complaint at this time, symptoms are severe in severity, no other aggravating alleviating factors.. Historical: - Allergies: 20:19 Sulfa (Sulfonamide Antibiotics); dd2 - PMHx: 20:19 bronchiectasis; GERD; Hypertension; STROKE (Hypertension); dd2 - PSHx: 20:19 Unable to Obtain; dd2 - Immunization history:: Adult Immunizations unknown. - Infectious Disease History:: Denies. - Social history:: Smoking status: Patient denies any tobacco usage or history of. - Family history:: not pertinent. ROS: 20:36 Constitutional: Negative for fever, chills, and weight loss, Cardiovascular: Negative rt for chest pain, palpitations, and edema, Respiratory: Negative for shortness of breath, cough, wheezing, and pleuritic chest pain, Abdomen/GI: Negative for abdominal pain, nausea, vomiting, diarrhea, and constipation, MS/Extremity: Negative for injury and deformity, 20:36 Skin: Positive for laceration(s), 20:36 Neuro: Positive for weakness, Negative for loss of consciousness, Exam: 20:36 Constitutional: This is a well developed, well nourished patient who is awake, alert, rt and in no acute distress. Chest/axilla: Normal chest wall appearance and motion. Nontender with no deformity. No lesions are appreciated. Cardiovascular: Regular rate and rhythm with a normal S1 and S2. No gallops, murmurs, or rubs. Normal PMI, no JVD. No pulse deficits. Respiratory: Lungs have equal breath sounds bilaterally, clear to auscultation and percussion. No rales, rhonchi or wheezes noted. No increased work of breathing, no retractions or nasal flaring. Abdomen/GI: Soft, non-tender, with normal bowel sounds. No distension or tympany. No guarding or rebound. No evidence of tenderness throughout. 20:36 Head/face: 4 cm laceration of the posterior scalp, no other external signs of trauma. 20:36 ECG was reviewed by the Attending Physician. 20:36 Neuro: 4/5 strength in left upper, left lower extremity, strength and sensation intact otherwise in extremities, cranial nerves II through XII intact, speech normal, awake, alert, oriented, Vital Signs: 20:07 BP 131 / 82; Pulse 65; Resp 17; Pulse Ox 98% on R/A; Weight 86.18 kg; Height 5 ft. 2 dd2 in. ; 20:12 BP 135 / 110; Pulse 66; Resp 18; Temp 98.5(O); Pulse Ox 98% ; dd2 20:25 BP 141 / 87; Pulse 69; Resp 17; Pulse Ox 97% on R/A; dd2 20:55 BP 139 / 86; Pulse 72; Resp 16; Temp 98.2; Pulse Ox 98% on R/A; dd2 20:07 Body Mass Index 34.75 (86.18 kg, 157.48 cm) dd2 20:07 NICARDIPINE DRIP VERBAL ORDER BY MD JAYCE. CANCELED VEBALLY BY MD JAYCE dd2 PT'S BP WNL NIH Stroke Scale Scores: 19:55 NIHSS Score: 5 dd2 [place] Coma Score: 20:01 Eye Response: spontaneous(4). Motor Response: obeys commands(6). Verbal Response: dd2 confused(4). Total: 14. Laceration: 20:47 Wound Repair of 4cm ( 1.6in ) subcutaneous laceration to scalp. Linear shaped.. Distal rt neuro/vascular/tendon intact. Anesthesia: Local anesthetic administered with 2 mls of 1% lidocaine w/ Epi. Wound prep: Copious irrigation. Skin closed with 4 staple Los using staple gun. Patient tolerated well. MDM: 19:40 Medical Screening Exam initiated rt 20:47 Differential diagnosis: CVA, TIA, cranial hemorrhage, traumatic intracranial rt hemorrhage. TNKase (Tenecteplase) Screening: Contraindications: Other: Intracranial hemorrhage. Data reviewed: vital signs, nurses notes, lab test result(s), EKG, radiologic studies. Consideration of Admission/Observation Patient requires transfer to trauma center due to hemorrhagic stroke with possible traumatic component. I considered the following discharge prescriptions or medication management in the emergency department Medications were administered in the Emergency Department. See MAR. Independent interpretation of the following test(s) in the Emergency Department CT Scan: My interpretation is Intracranial hemorrhage syndrome interpretation of CT scan images. Care significantly affected by the following chronic conditions: Hypertension. Counseling: I had a detailed discussion with the patient and/or guardian regarding the historical points, exam findings, and any diagnostic results supporting the discharge/admit diagnosis, lab results, radiology results, the need to transfer to another facility. 07/30 19:41 Order name: CT Stroke Brain w/o Contrast; Complete Time: 20:36 rt 07/30 19:41 Order name: Stroke CXR 1 View rt 07/30 19:41 Order name: Accucheck; Complete Time: 20:41 rt 07/30 19:41 Order name: Cardiac monitoring; Complete Time: 20:32 rt 07/30 19:41 Order name: EKG - Nurse/Tech; Complete Time: 20:32 rt 07/30 19:41 Order name: IV Saline Lock; Complete Time: 20:32 rt 07/30 19:41 Order name: Labs collected and sent; Complete Time: 20:32 rt 07/30 19:41 Order name: NPO; Complete Time: 20:32 rt 07/30 19:41 Order name: O2 Per Protocol; Complete Time: 20:32 rt 07/30 19:41 Order name: O2 Sat Monitoring; Complete Time: 20:32 rt EC:36 Rate is 68 beats/min. Rhythm is regular, Normal Sinus Rhythm with No ectopy. QRS Exline rt is Normal. VT interval is normal. QRS interval is normal. QT interval is normal. No Q waves. T waves are Normal. No ST changes noted. Interpreted by me. Administered Medications: 20:30 Drug: Lidocaine-EPINEPHrine -2 % (1:100,000) 10 ml Infiltration once; to bedside {Note: ha1 ADMINISTERED BY DR. EDUARDO .} Route: Infiltration; Disposition Summary: 07/30/24 20:55 Transfer Ordered Notes: Transfer Location: [facility] rt Reason: Higher level of care rt Condition: Critical rt Problem: new rt Symptoms: have improved rt Accepting Physician: (07/30/24 21:05) dd2 Diagnosis - Intracranial hemorrhage rt - Scalp laceration rt - Head injury rt Discharge Instructions: - Discharge Summary Sheet rv1 Forms: - Medication Reconciliation Form rt - SBAR form rv1 Critical care time excluding procedures: 20:47 Critical care time: Bedside Care: 40 minutes, Consultation: 10 minutes. Total time: 50 rt minutes NIH Stroke Scale - NIH Stroke Score Date: 07/30/2024 Time: 19:55 Total Score = 5 10. Dysarthria (speech clarity - read or repeat words) - 0(Normal) 11. Extinction and Inattention (visual/tactile/auditory/spatial/personal) - 0(No abnormality) 1a. Level of Consciousness (LOC) - 0(Alert) 1b. Level of Consciousness (LOC) (Month \T\ Age) - 1(One) 1c. LOC Commands (Open \T\ Closes Eyes/Washroom Cleaner) - 0(Both) 2. Best Gaze (Lateral Gaze Paresis) - 0(Normal) 3. Visual Field Loss - 0(No visual loss) 4. Facial Palsy - 0(Normal) 5a. Left Arm: Motor (10-second hold) - 1(Drift) 5b. Right Arm: Motor (10-second hold) - 0(No drift) 6a. Left Leg: Motor (5-second hold - always test supine) - 1(Drift) 6b. Right Leg: Motor (5-second hold - always test supine) - 0(No drift) 7. Limb Ataxia (finger/nose \T\ heel/chavira - test with eyes open) - 1(Present in one limb) 8. Sensory Loss (pinprick arms/legs/face) - 1(Mild to moderate loss) 9. Best Language: Aphasia (description/naming/reading) - 0(No aphasia) Initials: dd2 Signatures: Dispatcher [employer] EDLisa Powell RN RN ha1 Roderick Eduardo MD MD rt CLAUDIA MASSEY RN RN dd2 Corrections: (The following items were deleted from the chart) 19:41 19:41 Chest Single View+RAD.RAD.BRZ ordered. EDMS EDMS 19:50 19:41 Head Angio+CT.RAD.BRZ ordered. EDMS EDMS 19:50 19:41 Neck Angio+CT.RAD.BRZ ordered. EDMS EDMS 21:05 20:55 dr rt dd2
--- NOTE | 2024-07-30 20:56 | ER ---
Nurse's Notes [facility] Name: Jaleesa Hernandez Age: 84 yrs Sex: Female : 1940 Arrival Date: 07/30/2024 Time: 19:38 Bed 4 Private MD: Diagnosis: Intracranial hemorrhage;Scalp laceration;Head injury Presentation: 07/30 20:12 Chief complaint: EMS states: TONED OUT FOR FALL. EMS REPORTS UPON ARRIVAL PT WAS LYING dd2 IN FLOOR , BLEEDING FROM LEFT SIDE OF SCALP. PT REQUESTED TO GO TO BATHROOM AND PT REPORTED TO BE LEANING TO THE LEFT SIDE. EMS REPORTS HX OF CVA WITH NO DEFICITS FROM PAST. PT'S BP NORMAL ON SCENE, BEGAN TO ELEVATE IN ROUTE. Coronavirus screen: At this time, the client does not indicate any symptoms associated with coronavirus-19. Ebola Screen: No symptoms or risks identified at this time. An acute neurological deficit is present. The charge nurse has been notified. The patients blood glucose was checked prior to arriving to the hospital and was found to be hyperglycemic. Initial Sepsis Screen: Does the patient meet any 2 criteria? No. Patient's initial sepsis screen is negative. Does the patient have a suspected source of infection? No. Patient's initial sepsis screen is negative. Risk Assessment: Do you want to hurt yourself or someone else? Patient reports no desire to harm self or others. Onset of symptoms was July 30, 2024. Care prior to arrival: Medication(s) given: zofran 4 mg, Glucose check: 190. Mechanism of Injury: Fall from standing position. 20:12 Method Of Arrival: EMS: [facility] dd2 20:12 Acuity: LINUS 2 dd2 Triage Assessment: 20:19 The onset of the patients symptoms was less than three hours ago. General: Appears dd2 uncomfortable, Behavior is calm, cooperative. Pain: Complains of pain in RT SCALP. EENT: No deficits noted. Neuro: Level of Consciousness is awake, alert, obeys commands, confused, Oriented to person, place, Weigh Machine Operator are equal bilaterally Moves all extremities. Speech is normal, Facial symmetry appears normal, Pupils are Pupil Size: 3 Reports headache RT SCALP. Cardiovascular: ELEVATED BP. Respiratory: Airway is patent Respiratory effort is even, unlabored, Respiratory pattern is regular, symmetrical, Breath sounds are clear bilaterally. GI: No deficits noted. No signs and/or symptoms were reported involving the gastrointestinal system. Abdomen is non-distended, Abd is soft and non tender X 4 quads. : No deficits noted. No signs and/or symptoms were reported regarding the genitourinary system. Derm: Wound noted LACERATION TO RT SCALP Wound is LACERATION. Musculoskeletal: Circulation, motion, and sensation intact. Range of motion: intact in all extremities. Injury Description: Laceration sustained to RT SCALP moderate bleeding noted at this time. 21:04 The onset of the patients symptoms was July 30, 2024 at 18:20. dd2 Stroke Activation: Symptom onset < 3 hours Physician: ED Attending; Name: PARISH EDUARDO; Notified At: ; Arrived At: Physician: Mid-Level Provider; Name: ; Notified At: ; Arrived At: Physician: [not used]; Name: ; Notified At: ; Arrived At: Physician: [not used]; Name: ; Notified At: ; Arrived At: Physician: [not used]; Name: ; Notified At: ; Arrived At: Historical: - Allergies: 20:19 Sulfa (Sulfonamide Antibiotics); dd2 - PMHx: 20:19 bronchiectasis; GERD; Hypertension; STROKE (Hypertension); dd2 - PSHx: 20:19 Unable to Obtain; dd2 - Immunization history:: Adult Immunizations unknown. - Infectious Disease History:: Denies. - Social history:: Smoking status: Patient denies any tobacco usage or history of. - Family history:: not pertinent. Screenin:42 [facility] ED Fall Risk Assessment (Adult) History of falling in the last 3 months, dd2 including since admission Yes- single mechanical fall (1 pt) Confusion or Disorientation Yes (5 pts) Intoxicated or Sedated No (0 pts) Impaired Gait Yes (1 pt) Mobility Assist Device Used No (0 pt) Altered Elimination No (0 pt) Score/Fall Risk Level 3 or more points = High Risk Oriented to surroundings, Maintained a safe environment, Educated pt \T\ family on fall prevention, incl call for assistance when getting out of bed, Assessed \T\ reinforced patient's understanding of fall precautions, Hourly rounding (assess needs \T\ fall precautionary measures) done, Remained w/in arm's length of patient and in sight while toileting, Utilized family, sitter, or virtual shared services manager as indicated. Abuse screen: Denies threats or abuse. Nutritional screening: No deficits noted. Tuberculosis screening: No symptoms or risk factors identified. Assessment: 19:55 VAN Scoring: Arm Drift: Minor drift Visual Disturbance: No visual disturbance noted. dd2 Aphasia: No aphasia noted. Neglect: Patient is noted to be ignoring one of side of their body. Provider notified of +VAN scoring. DECREASED SENSATION TO LT SIDE. 20:23 Reassessment: SEE TRIAGE ASSESSMENT FOR FULL ASSESSMENT. dd2 20:24 [place] Swallow Protocol Exclusion Criteria: NPO for medical/surgical reason by provider dd2 order Yes Exclusion Criteria Result: Defer \T\ Consult Brief Cognitive Screen What is your name? Normal, Where are you right now? Normal, What year is it? Abnormal Oral Mechanism Examination MD Notified: Parish Eduardo MD. [place] Swallow Protocol Result: FAIL. TNKase (Tenecteplase) Screening: Contraindications: Intracranial hemorrhage and its risk factor and suspicion of subarachnoid bleed: Yes. Reassessment: SEE TRIAGE FOR FULL ASSESSMENT. 20:35 Reassessment: REPORT CALLED TO ANDREI ESPINOZA [facility] ER. dd2 Vital Signs: 20:07 BP 131 / 82; Pulse 65; Resp 17; Pulse Ox 98% on R/A; Weight 86.18 kg; Height 5 ft. 2 dd2 in. ; 20:12 BP 135 / 110; Pulse 66; Resp 18; Temp 98.5(O); Pulse Ox 98% ; dd2 20:25 BP 141 / 87; Pulse 69; Resp 17; Pulse Ox 97% on R/A; dd2 20:55 BP 139 / 86; Pulse 72; Resp 16; Temp 98.2; Pulse Ox 98% on R/A; dd2 20:07 Body Mass Index 34.75 (86.18 kg, 157.48 cm) dd2 20:07 NICARDIPINE DRIP VERBAL ORDER BY MD JAYEC. CANCELED VEBALLY BY MD JAYCE dd2 PT'S BP WNL [place] Coma Score: 20:01 Eye Response: spontaneous(4). Motor Response: obeys commands(6). Verbal Response: dd2 confused(4). Total: 14. NIH Stroke Scale Scores: 19:55 NIHSS Score: 5 dd2 ED Course: 19:40 Patient arrived in ED. jj6 19:40 Parish Eduardo MD is Attending Physician. rt 19:54 CLAUDIA MASSEY, ANDREI is Primary Nurse. dd2 20:00 Initiated transfer with Laura at [facility]. rv1 20:02 CT Stroke Brain w/o Contrast In Process Unspecified. EDMS 20:[address] Martell to [facility] ER. Laura to call Life flight. rv1 20:15 EKG done, by ED staff, reviewed by Parish Eduardo MD. dd2 20:19 Triage completed. dd2 20:19 Arm band placed on right wrist. Patient placed in an exam room, on a stretcher, on dd2 cardiac sonographer, on pulse oximetry. 20:40 Stroke CXR 1 View In Process Unspecified. EDMS 20:42 Patient has correct armband on for positive identification. Bed in low position. Call dd2 light in reach. Side rails up X2. Client placed on continuous cardiac and pulse oximetry monitoring. NIBP monitoring applied. digital strategist on. Door closed. Noise minimized. Warm blanket given. Pillow given. Verbal reassurance given. 20:42 No provider procedures requiring assistance completed. Assist provider with laceration dd2 repair on RT SCALP that was between 2.6 to 7.5 cm using chuck. Set up tray. Performed by Parish Eduardo MD Patient tolerated well. Initial lab(s) drawn, by ED staff, sent to lab. Maintain EMS IV. Dressing intact. Good blood return noted. Site clean \T\ dry. Gauge \T\ site: 18G RAC. Flushed with 10 mL NS. Patient maintains SpO2 saturation greater than 95% on room air. 21:03 Provided Education on: TRANSFER EDUCATION. dd2 21:03 Patient transferred, IV remains in place. dd2 Administered Medications: 20:30 Drug: Lidocaine-EPINEPHrine -2 % (1:100,000) 10 ml Infiltration once; to bedside {Note: ha1 ADMINISTERED BY DR. EDUARDO .} Route: Infiltration; Medication: 20:42 VIS not applicable for this client. dd2 Outcome: 20:55 ER care complete, transfer ordered by . rt 21:02 Transferred by helicopter to [facility], Transfer form completed. dd2 21:02 critical 21:02 Instructed on the need for transfer, Demonstrated understanding of instructions, 21:05 Patient left the ED. dd2 NIH Stroke Scale - NIH Stroke Score Date: 07/30/2024 Time: 19:55 Total Score = 5 10. Dysarthria (speech clarity - read or repeat words) - 0(Normal) 11. Extinction and Inattention (visual/tactile/auditory/spatial/personal) - 0(No abnormality) 1a. Level of Consciousness (LOC) - 0(Alert) 1b. Level of Consciousness (LOC) (Month \T\ Age) - 1(One) 1c. LOC Commands (Open \T\ Closes Eyes/Travel Ticketing Reviewer) - 0(Both) 2. Best Gaze (Lateral Gaze Paresis) - 0(Normal) 3. Visual Field Loss - 0(No visual loss) 4. Facial Palsy - 0(Normal) 5a. Left Arm: Motor (10-second hold) - 1(Drift) 5b. Right Arm: Motor (10-second hold) - 0(No drift) 6a. Left Leg: Motor (5-second hold - always test supine) - 1(Drift) 6b. Right Leg: Motor (5-second hold - always test supine) - 0(No drift) 7. Limb Ataxia (finger/nose \T\ heel/chavira - test with eyes open) - 1(Present in one limb) 8. Sensory Loss (pinprick arms/legs/face) - 1(Mild to moderate loss) 9. Best Language: Aphasia (description/naming/reading) - 0(No aphasia) Initials: dd2 Signatures: Dispatcher [employer] EDMS Jamee Hassan [id number] Lisa Shaw RN RN ha1 Parish Eduardo MD MD rt Villegas, Rebecca rv1 CLAUDIA MASSEY RN RN dd2 Corrections: (The following items were deleted from the chart) 20:11 20:07 BP 145 / 68; Pulse 65bpm; Resp 17bpm; Pulse Ox 98% RA; 86.18 kg; Height 5 rv1 ft. 2 in.; BMI: 34.7; rv1 07/31 05:15 07/30 20:07 BP 131 / 82; Pulse 65bpm; Resp 17bpm; Pulse Ox 98% RA; 86.18 kg; dd2 Height 5 ft. 2 in.; BMI: 34.7; rv1 07/31 05:15 07/30 20:42 GCS: 14, dd2 dd2 07/31 05:15 07/30 20:50 BP 131 / 82; Pulse 68bpm; Resp 18bpm; Spontaneous; Pulse Ox 97% RA; dd2 ha1 07/31 05:32 05:28 [place] Swallow Protocol Exclusion Criteria: Exclusion Criteria Result: 3 oz ha1 Water Swallow Challenge: Result: dd2
--- NOTE | 2024-07-30 21:05 | RAD REPORT ---
EXAMINATION: ONE VIEW CHEST XR CLINICAL INDICATION: Female, 84 years old.,cva TECHNIQUE: Frontal chest projection is submitted. Examination is limited by patient positioning and t echnique. COMPARISON: 03/05/2020 FINDINGS: The lungs are grossly clear apart from mild central interstitial prominence although suboptimal inspi ratory effort somewhat limits evaluation. No pneumothorax or sizable effusion. The heart is moderately enlarged in size. Mediastinal contours are unremarkable. IMPRESSION: Cardiomegaly mild central fissural prominence, reflecting central congestion or CHF
[2024-07-30 21:21] VITALS: O2SAT 98
[2024-07-30 21:22] VITALS: BP 135/110; TEMP 98.5
== END 2024-07-30 21:05 | disposition short-term general hospital (02) ==
LOC: ER 19:38
DX: I62.9 Nontraumatic intracranial hemorrhage, unspecified (principal); S01.01XA Laceration without foreign body of scalp, initial encounter; I10 Essential (primary) hypertension; R29.705 NIHSS score 5; W18.30XA Fall on same level, unspecified, initial encounter
CPT/HCPCS: 12002; 70450; 71045; 93005; 99285

== ENCOUNTER 2024-10-20 17:01 | Emergency (ER) | payer OTHER, BC ==
--- NOTE | 2024-10-20 19:20 | RAD REPORT ---
EXAMINATION: US LEFT LOWER EXTREMITY VENOUS DOPPLER CLINICAL INDICATION: [facility] MAIN left calf Pain;Swelling Bed Name: [id number] TECHNIQUE: Complete bilateral duplex sonography of the LEFT lower extremity veins was performed. The examination included compression for vein patency, color Doppler imaging and flow augmentation in response to distal compression of the distal external iliac, common femoral, femoral, popliteal, tibi al, and great and small saphenous veins. COMPARISON: 09/20/2020. FINDINGS: Duplex sonography testing of the veins of the LEFT lower extremity was performed. Color flow imaging shows all veins to be compressible with [id number] color filling. Pulsatile and phasic flow is present within all lower extremity deep and superficial veins examined. IMPRESSION: No evidence of deep venous thrombosis.
--- NOTE | 2024-10-20 19:33 | ER ---
Nurse's Notes [facility] Name: Jaleesa Hernandez Age: 84 yrs Sex: Female : 1940 Arrival Date: 10/20/2024 Time: 17:01 Bed IW1 Private MD: Diagnosis: Edema, unspecified-left lower leg Presentation: 10/20 17:21 Chief complaint: Patient states: LLE swelling and pain off/on for 10 days. No fever, ll1 but site is warm to touch. Coronavirus screen: Client denies travel out of the [place] in the last 14 days. At this time, the client does not indicate any symptoms associated with coronavirus-19. Ebola Screen: Patient denies travel to an Ebola-affected area in the 21 days before illness onset. Initial Sepsis Screen: Does the patient meet any 2 criteria? No. Patient's initial sepsis screen is negative. Does the patient have a suspected source of infection? No. Patient's initial sepsis screen is negative. Risk Assessment: Do you want to hurt yourself or someone else? Patient reports no desire to harm self or others. Onset of symptoms was October 09, 2024. 17:21 Method Of Arrival: Ambulatory ll1 17:21 Acuity: LINUS 3 ll1 Historical: - Allergies: 17:20 Sulfa (Sulfonamide Antibiotics); ll1 - PMHx: 17:20 bronchiectasis; GERD; Hypertension; stroke (Hypertension); ll1 - Immunization history:: Adult Immunizations up to date. - Infectious Disease History:: Denies. - Social history:: Smoking status: Patient denies any tobacco usage or history of. Screenin:41 [facility] ED Fall Risk Assessment (Adult) History of falling in the last 3 months, cp4 including since admission No falls in past 3 months (0 pts) Confusion or Disorientation No (0 pts) Intoxicated or Sedated No (0 pts) Impaired Gait No (0 pts) Mobility Assist Device Used No (0 pt) Altered Elimination No (0 pt) Score/Fall Risk Level 0 - 2 = Low Risk Oriented to surroundings, Maintained a safe environment, Assessed \T\ reinforced patient's understanding of fall precautions, Hourly rounding (assess needs \T\ fall precautionary measures) done. Abuse screen: Denies threats or abuse. Denies injuries from another. Nutritional screening: No deficits noted. Tuberculosis screening: No symptoms or risk factors identified. Assessment: 19:41 General: Appears in no apparent distress. uncomfortable, Behavior is calm, cooperative, cp4 appropriate for age. Pain: Complains of pain in left leg and left calf Pain currently is 8 out of 10 on a pain scale. Neuro: Level of Consciousness is awake, alert, obeys commands, Oriented to person, place, time, situation. Cardiovascular: Patient's skin is warm and dry. Respiratory: Airway is patent Respiratory effort is even, unlabored. GI: No signs and/or symptoms were reported involving the gastrointestinal system. : No signs and/or symptoms were reported regarding the genitourinary system. EENT: No signs and/or symptoms were reported regarding the EENT system. Derm: No signs and/or symptoms reported regarding the dermatologic system. Musculoskeletal: Reports pain in left leg and left calf. Vital Signs: 17:21 BP 160 / 72; Pulse 72; Resp 17; Temp 98.2; Pulse Ox 96% on R/A; Weight 76.66 kg; Height ll1 5 ft. 2 in. ; Pain 8/10; 17:21 Body Mass Index 30.91 (76.66 kg, 157.48 cm) ll1 17:21 Pain Scale: Adult ll1 ED Course: 17:03 Patient arrived in ED. mr 17:22 Triage completed. ll1 17:23 [facility] kb 17:23 Heriberto Bell MD is Attending Physician. kb 18:04 US Extremity Venous Unilateral Ltd In Process Unspecified. EDMS 19:40 Sosa Walker is Primary Nurse. cp4 19:41 Patient has correct armband on for positive identification. Provided Education on: cp4 cellutlitis. 19:41 No provider procedures requiring assistance completed. Patient did not have IV access cp4 during this emergency room visit. 19:44 Arm band placed on right wrist. Patient placed in waiting room. cp4 Administered Medications: 19:40 Drug: Cephalexin PO 500 mg PO once Route: PO; cp4 19:40 Follow up: Response: No adverse reaction cp4 Medication: 19:41 VIS not applicable for this client. cp4 Outcome: 19:33 Discharge ordered by . kb 19:41 Discharged to home ambulatory, cp4 19:41 Condition: stable 19:41 Discharge instructions given to patient, family, Instructed on discharge instructions, follow up and referral plans. medication usage, Demonstrated understanding of instructions, follow-up care, medications, Prescriptions given X 1, 19:44 Patient left the ED. cp4 Signatures: Dispatcher [employer] EDMS Heike Thompson, ICE SKATING INSTRUCTOR-C ICE SKATING INSTRUCTOR-CkLoly Thomas, Reg Reg mr Lorraine Mckee RN RN ll1 Sosa Walker cp4 Corrections: (The following items were deleted from the chart) 17:21 17:20 PSHx: None; ll1 ll1
--- NOTE | 2024-10-20 19:33 | EDPHYS ---
Physician Documentation [facility] Name: Jaleesa Hernandez Age: 84 yrs Sex: Female : 1940 Arrival Date: 10/20/2024 Time: 17:01 Bed IW1 Private MD: ED Physician Heriberto Bell HPI: 10/20 18:24 This 84 yrs old Female presents to ER via Ambulatory with complaints of Leg Swelling. kb 18:24 Patient is a 84-year-old female who presents for swelling to left calf that has been kb intermittent over the last 10 days, worse today. Family concerned about a blood clot so brought her in today for ultrasound. Denies fever, shortness of breath.. Historical: - Allergies: 17:20 Sulfa (Sulfonamide Antibiotics); ll1 - PMHx: 17:20 bronchiectasis; GERD; Hypertension; stroke (Hypertension); ll1 - Immunization history:: Adult Immunizations up to date. - Infectious Disease History:: Denies. - Social history:: Smoking status: Patient denies any tobacco usage or history of. ROS: 17:24 Constitutional: As per HPI kb Exam: 17:27 Constitutional: This is a well developed, well nourished patient who is awake, alert, kb and in no acute distress. Head/Face: Normocephalic, atraumatic. ENT: Moist Mucous membranes Cardiovascular: Regular rate Respiratory: Respirations even and unlabored. No increased work of breathing. Talking in full sentences Skin: Warm, dry with normal turgor. Normal color. Neuro: Awake and alert, GCS 15, oriented to person, place, time, and situation. 17:27 Musculoskeletal/extremity: Extremities: grossly normal except: noted in the left calf: pain, swelling, tenderness, ROM: intact in all extremities, Circulation is intact in all extremities. Sensation intact. Weight bearing: can bear weight with assistance only, uses walker, Vital Signs: 17:21 BP 160 / 72; Pulse 72; Resp 17; Temp 98.2; Pulse Ox 96% on R/A; Weight 76.66 kg; Height ll1 5 ft. 2 in. ; Pain 8/10; 17:21 Body Mass Index 30.91 (76.66 kg, 157.48 cm) ll1 17:21 Pain Scale: Adult ll1 MDM: 17:23 Medical Screening Exam initiated kb 19:31 Differential diagnosis: cellulitis, dvt. Data reviewed: vital signs, nurses notes. kb Historians other than the Patient: Family Member: family. Counseling: I had a detailed discussion with the patient and/or guardian regarding the historical points, exam findings, and any diagnostic results supporting the discharge/admit diagnosis, radiology results, the need for outpatient follow up, a family practitioner, to return to the emergency department if symptoms worsen or persist or if there are any questions or concerns that arise at home. 10/20 17:27 Order name: Extremity Venous Unilateral Ltd; Complete Time: 19:22 kb Administered Medications: 19:40 Drug: Cephalexin PO 500 mg PO once Route: PO; cp4 19:40 Follow up: Response: No adverse reaction cp4 Disposition Summary: 10/20/24 19:33 Discharge Ordered Notes: Location: Home kb Condition: Stable kb Diagnosis - Edema, unspecified - left lower leg kb Followup: kb - With: Emergency Department - When: As needed - Reason: Worsening of condition Followup: kb - With: Private Physician - When: 2 - 3 days - Reason: Recheck today's complaints, Continuance of care, Re-evaluation by your physician Discharge Instructions: - Discharge Summary Sheet kb - Cellulitis, Adult, [id number] kb - Edema, [id number] kb Forms: - Medication Reconciliation Form kb - Antibiotic Education kb - Prescription Opioid Use kb - Patient Portal Instructions kb - Leadership Thank You Letter kb Prescriptions: - Cephalexin 500 mg Oral Capsule - take 1 capsule ORAL route every 8 hours for 10 days; 30 capsule; Refills: 0, kb Product Selection Permitted Signatures: Dispatcher [employer] EDHeike Orourke, INSPECTOR [employer]-C INSPECTOR [employer]-Lorraine Stevens, RN RN ll1 Sosa Walker cp4 Corrections: (The following items were deleted from the chart) 17:21 17:20 PSHx: None; ll1 ll1 17:27 17:27 Extremity Venous Uni Ltd+[email or web address] ordered. EDOR EDMS
[2024-10-20] MEDS ORDERED: CEPHALEXIN 250 MG CAP ONE (19:37)
[2024-10-21 02:25] VITALS: BP 160/72; TEMP 98.2; O2SAT 96
== END 2024-10-20 19:44 | disposition home or self-care (01) ==
LOC: ER 17:01
DX: R60.9 Edema, unspecified (principal)
CPT/HCPCS: 93971; 99283